=== PATIENT | female | born 1970 | race Caucasian/White ===

== ENCOUNTER 2021-04-15 19:09 | Emergency (ER) | payer BC ==
[~2021-04-15] VITALS: Ht 167.6 cm; Wt 81.8 kg
[2021-04-15] MEDS ORDERED: FLEXERIL 1010 MG/TAB PO (21:17)
[2021-04-15] MEDS ORDERED: MEDROL 4MG DOSPA4 MG PO (21:17)
[2021-04-15 21:36] VITALS: BP 136/64; PULSE 78; TEMP 98.2
== END 2021-04-15 21:38 | disposition home or self-care (01) ==
LOC: COL.ER 19:09
DX: M25.552 Pain in left hip (principal); F17.200 Nicotine dependence, unspecified, uncomplicated; W19.XXXA Unspecified fall, initial encounter; W22.8XXA Striking against or struck by other objects, initial encounter; Y93.K1 Activity, walking an animal
CPT/HCPCS: J1885

== ENCOUNTER → 2021-06-27 | Outpatient (CLI) | payer BC ==
[~2021-06-27] MED LIST: FLEXERIL 1010 MG/TAB PO; MEDROL 4MG DOSPA4 MG PO
== END ==
LOC: COL.RAD 13:00
DX: M25.552 Pain in left hip (principal)
CPT/HCPCS: J3301